=== PATIENT | male | born 1965 | race Caucasian/White ===

== ENCOUNTER → 2017-03-16 | Outpatient (CLI) | payer MEDICARE, MEDICAID ==
[~2017-03-16] MED LIST: AMLO-512 PO; ASPI-1213 PO; DULO60CA44 PO; FOLI1 PO; LISI-662 PO; PALI234D IM; PROP20 PO; SIMV-260 PO; THIA100 PO
== END | disposition home or self-care (01) ==
LOC: RADPV 15:09
PROVIDERS: ATTEND Internal Medicine Geriatric Medicine
DX: M25.511 Pain in right shoulder (principal)

== ENCOUNTER 2018-05-02 13:18 | Inpatient (IN) | payer MEDICARE, MEDICAID ==
[~2018-05-02] VITALS: Ht 162.6 cm; Wt 70.8 kg
[~2018-05-02 13:18] MED LIST changes: -PROP20 PO; +PROP20TA96 PO; -THIA100 PO; +THIA100T67 PO
[2018-05-02] MEDS ORDERED: BENZ0.5T44 PO (13:31)
[2018-05-02] MEDS ORDERED: ALBU8HFA IH (13:31)
[2018-05-02] MEDS ORDERED: GEMF600T5 PO (13:31)
[2018-05-02] MEDS ORDERED: FAMO20 PO (13:31)
[2018-05-02] MEDS ORDERED: ACETAMINOPHEN 500 MG TABLET PO ONE (13:45)
[2018-05-02 13:53] LABS: BASOPHILS % (AUTO) 0.3 % (0.0-2.0); EOSINOPHILS % (AUTO) 2.1 % (1.0-6.0); HEMATOCRIT 37.7 % (41-53); LYMPHOCYTES # (AUTO) 1.9 K/uL (1.0-4.8); LYMPHOCYTES % (AUTO) 22.3 % (22.0-44.0); MEAN CORPUSCULAR HEMOGLOBIN 32.7 pg (26.0-34.0); MEAN CORPUSCULAR HGB CONC 34.4 G/dL (31.0-37.0); MEAN CORPUSCULAR VOLUME 95 fL (80-100); MONOCYTES # (AUTO) 0.7 K/uL (0.1-1.0); MONOCYTES % (AUTO) 7.5 % (2.0-9.0); NEUTROPHILS # (AUTO) 5.9 K/uL (1.8-7.7); NEUTROPHILS % (AUTO) 67.8 % (40.0-70.0); PLATELET COUNT (AUTO) 378 K/uL (150-450); RED BLOOD CELL COUNT(AUTO) 3.97 MIL/uL (4.50-5.90); RED CELL DISTRIBUTION WIDTH 13.9 % (11.5-14.5)
[2018-05-02 14:06] LABS: ANION GAP 9 mmol/L (8-16); CALCIUM, TOTAL 9.5 mg/dL (8.8-10.5); CARBON DIOXIDE 27 mmol/L (22-29); CHLORIDE 103 mmol/L (98-107); CREATININE 1.04 mg/dL (0.60-1.30); GLOMERULAR FILTR. RATE CALC > 60 mL/min (>60); GLUCOSE,RANDOM 125 mg/dL (70-110); POTASSIUM 3.8 mmol/L (3.5-5.1); SODIUM SERUM 139 mmol/L (136-145); UREA NITROGEN, BLOOD 15 mg/dL (7-18)
[2018-05-02 14:12] LABS: ALANINE AMINOTRANSFERASE 46 U/L (12-78); ALKALINE PHOSPHATASE 85 U/L (46-116); ASPARTATE AMINOTRANSFERASE 28 U/L (15-37); BILIRUBIN,TOTAL 0.3 mg/dL (0.1-1.0); TOTAL PROTEIN, SERUM 7.2 g/dL (6.4-8.2)
[2018-05-02] MEDS ORDERED: HALOPERIDOL 5 MG TABLET PO PRN (15:15)
[2018-05-02] MEDS ORDERED: LORazepam 2 MG TABLET PO PRN (15:15)
[2018-05-02] MEDS ORDERED: ACETAMINOPHEN 325 MG TABLET PO PRN (15:30)
[2018-05-02 17:33] LABS: AMPHET/METH SCREEN,URINE NEGATIVE (NEGATIVE); BARBITURATE SCREEN, URINE NEGATIVE (NEGATIVE); BENZODIAZEPINES SCREEN,URINE NEGATIVE (NEGATIVE); CANNABINOID SCREEN,URINE POSITIVE (NEGATIVE); COCAINE SCREEN,URINE NEGATIVE (NEGATIVE); METHADONE SCREEN, URINE NEGATIVE (NEGATIVE); OPIATE SCREEN,URINE NEGATIVE (NEGATIVE); PHENCYCLIDINE SCREEN,URINE NEGATIVE (NEGATIVE)
[2018-05-02] MEDS ORDERED: CloNIDine HCL 0.1 MG TABLET PO PRN (19:15)
[2018-05-02] MEDS ORDERED: ALBUTEROL SULFATE HFA 90 MCG/PUFF 8 GM INHALER IH PRN (19:15)
[2018-05-02 20:03] VITALS: BP 121/87
[2018-05-03] MEDS: GEMFIBROZIL 600 MG TABLET PO SCH ×2 (06:30→16:32)
[2018-05-03 08:00] VITALS: BP 138/92
[2018-05-03 08:11] LABS: BASOPHILS % (AUTO) 0.4 % (0.0-2.0); EOSINOPHILS % (AUTO) 2.8 % (1.0-6.0); HEMATOCRIT 37.2 % (41-53); HEMOGLOBIN 12.9 g/dL (13.5-17.5); LYMPHOCYTES # (AUTO) 1.7 K/uL (1.0-4.8); LYMPHOCYTES % (AUTO) 25.6 % (22.0-44.0); MEAN CORPUSCULAR HEMOGLOBIN 32.5 pg (26.0-34.0); MEAN CORPUSCULAR HGB CONC 34.8 G/dL (31.0-37.0); MEAN CORPUSCULAR VOLUME 93 fL (80-100); MONOCYTES # (AUTO) 0.5 K/uL (0.1-1.0); MONOCYTES % (AUTO) 7.6 % (2.0-9.0); NEUTROPHILS # (AUTO) 4.3 K/uL (1.8-7.7); NEUTROPHILS % (AUTO) 63.6 % (40.0-70.0); PLATELET COUNT (AUTO) 370 K/uL (150-450); RED BLOOD CELL COUNT(AUTO) 3.98 MIL/uL (4.50-5.90); RED CELL DISTRIBUTION WIDTH 14.1 % (11.5-14.5)
[2018-05-03 08:42] LABS: HEMOGLOBIN A1C 5.9 % (4.5-6.2)
[2018-05-03 08:49] LABS: ALANINE AMINOTRANSFERASE 55 U/L (12-78); ALBUMIN 3.8 g/dL (3.4-5.0); ALKALINE PHOSPHATASE 78 U/L (46-116); ANION GAP 9 mmol/L (8-16); ASPARTATE AMINOTRANSFERASE 40 U/L (15-37); BILIRUBIN,TOTAL 0.4 mg/dL (0.1-1.0); CALCIUM, TOTAL 9.4 mg/dL (8.8-10.5); CARBON DIOXIDE 29 mmol/L (22-29); CHLORIDE 104 mmol/L (98-107); CHOL/HDL RATIO 5.8 (4.2-7.3); CHOLESTEROL 174 mg/dL (131-200); CREATININE 0.97 mg/dL (0.60-1.30); GLOMERULAR FILTR. RATE CALC > 60 mL/min (>60); GLUCOSE,RANDOM 101 mg/dL (70-110); HDL CHOLESTEROL 30 mg/dL (40-60); LDL CHOL (CALC.) 112 mg/dL (0-130); POTASSIUM 3.5 mmol/L (3.5-5.1); SODIUM SERUM 142 mmol/L (136-145); TRIGLYCERIDES 159 mg/dL (15-150); UREA NITROGEN, BLOOD 16 mg/dL (7-18)
[2018-05-03] MEDS: AmLODIPine BESYLATE 10 MG TABLET PO SCH (08:52)
[2018-05-03] MEDS: SIMVASTATIN 20 MG TABLET PO SCH (08:52)
[2018-05-03] MEDS: THIAMINE HCL 100 MG TABLET PO SCH ×2 (08:52→16:33)
[2018-05-03] MEDS: FOLIC ACID 1 MG TABLET PO SCH (08:52)
[2018-05-03] MEDS: FAMOTIDINE 20 MG TABLET PO SCH ×2 (08:52→16:32)
[2018-05-03] MEDS: LISINOPRIL 20 MG TABLET PO SCH ×2 (08:52→16:32)
[2018-05-03] MEDS: ASPIRIN 325 MG TABLET PO SCH (08:52)
[2018-05-03 11:12] LABS: THYROID STIMULATING HORMONE 0.94 uIU/mL (0.36-3.74)
[2018-05-03 16:16] VITALS: BP 121/84
[2018-05-03] MEDS: DULoxetine HCL 60 MG CAPSULE PO SCH (16:33)
[2018-05-03 20:54] VITALS: BP 132/81
[2018-05-03] MEDS: IBUPROFEN 400 MG TABLET PO PRN (20:57)
[2018-05-03] MEDS: ZOLPIDEM TARTRATE 10 MG TABLET PO PRN (20:57)
[2018-05-03] MEDS ORDERED: ARIP10TA8 PO (21:05)
[2018-05-04 00:03] VITALS: BP 133/75
[2018-05-04] MEDS: GEMFIBROZIL 600 MG TABLET PO SCH ×2 (06:43→16:34)
[2018-05-04 08:08] VITALS: BP 141/92
[2018-05-04] MEDS: ARIPiprazole 10 MG TABLET PO SCH (08:08)
[2018-05-04] MEDS: FOLIC ACID 1 MG TABLET PO SCH (08:08)
[2018-05-04] MEDS: DULoxetine HCL 60 MG CAPSULE PO SCH ×2 (08:08→16:34)
[2018-05-04] MEDS: SIMVASTATIN 20 MG TABLET PO SCH (08:08)
[2018-05-04] MEDS: LISINOPRIL 20 MG TABLET PO SCH ×2 (08:08→16:34)
[2018-05-04] MEDS: FAMOTIDINE 20 MG TABLET PO SCH ×2 (08:08→16:34)
[2018-05-04] MEDS: AmLODIPine BESYLATE 10 MG TABLET PO SCH (08:08)
[2018-05-04] MEDS: ASPIRIN 325 MG TABLET PO SCH (08:08)
[2018-05-04] MEDS: THIAMINE HCL 100 MG TABLET PO SCH ×2 (08:08→16:34)
[2018-05-04 16:14] VITALS: BP 123/93
[2018-05-04 20:44] VITALS: BP 118/78
[2018-05-04] MEDS: ZOLPIDEM TARTRATE 10 MG TABLET PO PRN (20:44)
[2018-05-05 05:32] VITALS: BP_SYST 117; BP_SYST 123; BP_DIAS 86; BP_DIAS 93
[2018-05-05] MEDS: GEMFIBROZIL 600 MG TABLET PO SCH ×2 (06:32→16:24)
[2018-05-05] MEDS: ARIPiprazole 10 MG TABLET PO SCH (08:12)
[2018-05-05] MEDS: LISINOPRIL 20 MG TABLET PO SCH ×2 (08:12→16:24)
[2018-05-05] MEDS: FOLIC ACID 1 MG TABLET PO SCH (08:12)
[2018-05-05] MEDS: DULoxetine HCL 60 MG CAPSULE PO SCH ×2 (08:12→16:24)
[2018-05-05] MEDS: SIMVASTATIN 20 MG TABLET PO SCH (08:12)
[2018-05-05] MEDS: ASPIRIN 325 MG TABLET PO SCH (08:12)
[2018-05-05] MEDS: THIAMINE HCL 100 MG TABLET PO SCH ×2 (08:12→16:24)
[2018-05-05] MEDS: FAMOTIDINE 20 MG TABLET PO SCH ×2 (08:12→16:24)
[2018-05-05] MEDS: AmLODIPine BESYLATE 10 MG TABLET PO SCH (08:12)
[2018-05-05 08:19] VITALS: BP 117/82
[2018-05-05 16:18] VITALS: BP 105/85
[2018-05-05 16:31] VITALS: BP 122/79
[2018-05-05] MEDS: ZOLPIDEM TARTRATE 10 MG TABLET PO PRN (20:30)
[2018-05-06 06:12] VITALS: BP 118/74
[2018-05-06] MEDS: GEMFIBROZIL 600 MG TABLET PO SCH ×2 (06:39→16:55)
[2018-05-06 08:09] VITALS: BP 123/88
[2018-05-06] MEDS: THIAMINE HCL 100 MG TABLET PO SCH ×2 (08:13→16:56)
[2018-05-06] MEDS: FOLIC ACID 1 MG TABLET PO SCH (08:13)
[2018-05-06] MEDS: AmLODIPine BESYLATE 10 MG TABLET PO SCH (08:13)
[2018-05-06] MEDS: SIMVASTATIN 20 MG TABLET PO SCH (08:13)
[2018-05-06] MEDS: LISINOPRIL 20 MG TABLET PO SCH ×2 (08:13→16:56)
[2018-05-06] MEDS: DULoxetine HCL 60 MG CAPSULE PO SCH ×2 (08:13→16:56)
[2018-05-06] MEDS: ARIPiprazole 10 MG TABLET PO SCH (08:13)
[2018-05-06] MEDS: FAMOTIDINE 20 MG TABLET PO SCH ×2 (08:14→16:56)
[2018-05-06] MEDS: ASPIRIN 325 MG TABLET PO SCH (08:18)
[2018-05-06 16:29] VITALS: BP 123/77
[2018-05-06] MEDS: IBUPROFEN 400 MG TABLET PO PRN (16:48)
[2018-05-06] MEDS: ZOLPIDEM TARTRATE 10 MG TABLET PO PRN (20:48)
[2018-05-07 03:28] VITALS: BP 119/65
[2018-05-07] MEDS: GEMFIBROZIL 600 MG TABLET PO SCH ×2 (06:34→16:33)
[2018-05-07 08:10] VITALS: BP 130/90
[2018-05-07] MEDS: DULoxetine HCL 60 MG CAPSULE PO SCH ×2 (08:20→16:33)
[2018-05-07] MEDS: THIAMINE HCL 100 MG TABLET PO SCH ×2 (08:20→16:33)
[2018-05-07] MEDS: AmLODIPine BESYLATE 10 MG TABLET PO SCH (08:20)
[2018-05-07] MEDS: ASPIRIN 325 MG TABLET PO SCH (08:20)
[2018-05-07] MEDS: SIMVASTATIN 20 MG TABLET PO SCH (08:20)
[2018-05-07] MEDS: FOLIC ACID 1 MG TABLET PO SCH (08:20)
[2018-05-07] MEDS: ARIPiprazole 10 MG TABLET PO SCH (08:20)
[2018-05-07] MEDS: FAMOTIDINE 20 MG TABLET PO SCH ×2 (08:20→16:33)
[2018-05-07] MEDS: LISINOPRIL 20 MG TABLET PO SCH ×2 (08:20→16:33)
[2018-05-07 16:06] VITALS: BP 112/84
[2018-05-07] MEDS ORDERED: TraZODone HCL 100 MG TABLET PO SCH (21:00)
[2018-05-08 01:01] VITALS: BP 103/71
[2018-05-08] MEDS: GEMFIBROZIL 600 MG TABLET PO SCH (06:29)
[2018-05-08] MEDS: LISINOPRIL 20 MG TABLET PO SCH (08:20)
[2018-05-08] MEDS: FOLIC ACID 1 MG TABLET PO SCH (08:20)
[2018-05-08] MEDS: ASPIRIN 325 MG TABLET PO SCH (08:20)
[2018-05-08] MEDS: FAMOTIDINE 20 MG TABLET PO SCH (08:20)
[2018-05-08] MEDS: AmLODIPine BESYLATE 10 MG TABLET PO SCH (08:20)
[2018-05-08] MEDS: THIAMINE HCL 100 MG TABLET PO SCH (08:20)
[2018-05-08] MEDS: DULoxetine HCL 60 MG CAPSULE PO SCH (08:20)
[2018-05-08] MEDS: SIMVASTATIN 20 MG TABLET PO SCH (08:20)
[2018-05-08] MEDS ORDERED: DULO60CA44 PO (08:49)
[2018-05-08] MEDS ORDERED: TRAZ-220 PO (08:51)
[2018-05-08] MEDS ORDERED: ARIPiprazole 15 MG TABLET PO SCH (09:00)
== END 2018-05-08 12:15 | disposition home or self-care (01) | DRG 885 ==
LOC: EMS 13:19 → B2X 16:52
PROVIDERS: ADMIT Psychiatry & Neurology Psychiatry; ATTEND Psychiatry & Neurology Psychiatry
DX: F25.0 Schizoaffective disorder, bipolar type (principal); R45.851 Suicidal ideations; F15.20 Other stimulant dependence, uncomplicated; D64.9 Anemia, unspecified; E78.00 Pure hypercholesterolemia, unspecified; E78.5 Hyperlipidemia, unspecified; F10.10 Alcohol abuse, uncomplicated; F12.90 Cannabis use, unspecified, uncomplicated; F41.9 Anxiety disorder, unspecified; R73.9 Hyperglycemia, unspecified; I10 Essential (primary) hypertension; I25.10 Atherosclerotic heart disease of native coronary artery without angina pectoris; J44.9 Chronic obstructive pulmonary disease, unspecified; K21.9 Gastro-esophageal reflux disease without esophagitis; Z80.0 Family history of malignant neoplasm of digestive organs; Z79.82 Long term (current) use of aspirin; Z95.5 Presence of coronary angioplasty implant and graft; Z91.5 Personal history of self-harm; Z79.899 Other long term (current) drug therapy
CPT/HCPCS: 80074; 83036; 84443; G0480

== ENCOUNTER → 2018-06-12 | Outpatient (CLI) | payer MEDICARE, MEDICAID ==
[~2018-06-12] MED LIST changes: +ALBU8HFA IH; +ARIP10TA8 PO; +FAMO20 PO; -FOLI1 PO; +GEMF600T5 PO; -PALI234D IM; -PROP20TA96 PO; -THIA100T67 PO; +TRAZ-220 PO
== END | disposition home or self-care (01) ==
LOC: RADPV 08:27
PROVIDERS: ATTEND Internal Medicine Cardiovascular Disease
DX: I25.10 Atherosclerotic heart disease of native coronary artery without angina pectoris (principal); I50.1 Left ventricular failure, unspecified
CPT/HCPCS: 93306

== ENCOUNTER 2018-12-13 05:51 | Inpatient (IN) | payer BC, MEDICAID, MEDICARE ==
[~2018-12-13] VITALS: Ht 162.6 cm; Wt 71.7 kg
[~2018-12-13 05:51] MED LIST changes: -AMLO-512 PO; +AMLO10TA7 PO; -ASPI-1213 PO; +ASPI-1484 PO
[2018-12-13 09:36] VITALS: BP 125/78
[2018-12-13] MEDS ORDERED: LISI-661 PO (09:41)
[2018-12-13] MEDS ORDERED: AMLO5TAB9 PO (09:41)
[2018-12-13] MEDS ORDERED: LORazepam 2 MG TABLET PO PRN (10:15)
[2018-12-13] MEDS ORDERED: HALOPERIDOL 5 MG TABLET PO PRN (10:15)
[2018-12-13] MEDS ORDERED: ZOLPIDEM TARTRATE 10 MG TABLET PO PRN (10:15)
[2018-12-13 12:15] VITALS: BP 122/86
[2018-12-13] MEDS: AmLODIPine BESYLATE 5 MG TABLET PO SCH (12:17)
[2018-12-13] MEDS: LISINOPRIL 10 MG TABLET PO SCH (12:17)
[2018-12-13] MEDS: ASPIRIN 325 MG TABLET PO SCH (12:17)
[2018-12-13 16:13] VITALS: BP 133/83
[2018-12-13] MEDS: FAMOTIDINE 20 MG TABLET PO SCH (16:54)
[2018-12-13] MEDS: DULoxetine HCL 60 MG CAPSULE PO SCH (16:54)
[2018-12-13] MEDS: TraZODone HCL 100 MG TABLET PO SCH (20:49)
[2018-12-14 06:17] VITALS: BP 136/85
[2018-12-14 06:56] LABS: BASOPHILS % (AUTO) 0.6 % (0.0-2.0); EOSINOPHILS % (AUTO) 3.5 % (1.0-6.0); HEMATOCRIT 39.3 % (41-53); HEMOGLOBIN 13.2 g/dL (13.5-17.5); LYMPHOCYTES % (AUTO) 24.6 % (22.0-44.0); MEAN CORPUSCULAR HEMOGLOBIN 32.9 pg (26.0-34.0); MEAN CORPUSCULAR HGB CONC 33.5 G/dL (31.0-37.0); MEAN CORPUSCULAR VOLUME 98 fL (80-100); MONOCYTES # (AUTO) 0.6 K/uL (0.1-1.0); NEUTROPHILS # (AUTO) 5.2 K/uL (1.8-7.7); NEUTROPHILS % (AUTO) 64.3 % (40.0-70.0); PLATELET COUNT (AUTO) 340 K/uL (150-450); RED BLOOD CELL COUNT(AUTO) 4.01 MIL/uL (4.50-5.90); RED CELL DISTRIBUTION WIDTH 14.1 % (11.5-14.5)
[2018-12-14 07:26] LABS: ALANINE AMINOTRANSFERASE 30 U/L (12-78); ALBUMIN 4.3 g/dL (3.4-5.0); ALKALINE PHOSPHATASE 77 U/L (46-116); ANION GAP 10 mmol/L (8-16); ASPARTATE AMINOTRANSFERASE 15 U/L (15-37); BILIRUBIN,TOTAL 0.4 mg/dL (0.1-1.0); CALCIUM, TOTAL 9.8 mg/dL (8.8-10.5); CARBON DIOXIDE 27 mmol/L (22-29); CHLORIDE 106 mmol/L (98-107); CHOL/HDL RATIO 4.4 (4.2-7.3); CHOLESTEROL 136 mg/dL (131-200); CREATININE 1.16 mg/dL (0.60-1.30); GLOMERULAR FILTR. RATE CALC > 60 mL/min (>60); GLUCOSE,RANDOM 98 mg/dL (70-110); HDL CHOLESTEROL 31 mg/dL (40-60); LDL CHOL (CALC.) 84 mg/dL (0-130); POTASSIUM 4.3 mmol/L (3.5-5.1); SODIUM SERUM 143 mmol/L (136-145); THYROID STIMULATING HORMONE 0.57 uIU/mL (0.36-3.74); TOTAL PROTEIN, SERUM 6.5 g/dL (6.4-8.2); TRIGLYCERIDES 105 mg/dL (15-150); UREA NITROGEN, BLOOD 14 mg/dL (7-18)
[2018-12-14 07:38] LABS: HEMOGLOBIN A1C 5.6 % (4.5-6.2)
[2018-12-14 08:07] VITALS: BP 133/87
[2018-12-14] MEDS: ARIPiprazole 15 MG TABLET PO SCH (08:32)
[2018-12-14] MEDS: ASPIRIN 325 MG TABLET PO SCH (08:32)
[2018-12-14] MEDS: LISINOPRIL 10 MG TABLET PO SCH (08:32)
[2018-12-14] MEDS: AmLODIPine BESYLATE 5 MG TABLET PO SCH (08:32)
[2018-12-14] MEDS: DULoxetine HCL 60 MG CAPSULE PO SCH ×2 (08:33→16:19)
[2018-12-14] MEDS: FAMOTIDINE 20 MG TABLET PO SCH ×2 (08:33→16:19)
[2018-12-14 16:08] VITALS: BP 133/82
[2018-12-14] MEDS: TraZODone HCL 100 MG TABLET PO SCH (20:03)
[2018-12-15 07:15] VITALS: BP 126/80
[2018-12-15 08:40] VITALS: BP 139/72
[2018-12-15] MEDS: FAMOTIDINE 20 MG TABLET PO SCH ×2 (09:25→16:06)
[2018-12-15] MEDS: DULoxetine HCL 60 MG CAPSULE PO SCH ×2 (09:25→16:06)
[2018-12-15] MEDS: LISINOPRIL 10 MG TABLET PO SCH (09:25)
[2018-12-15] MEDS: ASPIRIN 325 MG TABLET PO SCH (09:25)
[2018-12-15] MEDS: AmLODIPine BESYLATE 5 MG TABLET PO SCH (09:25)
[2018-12-15] MEDS: ARIPiprazole 15 MG TABLET PO SCH (09:25)
[2018-12-15 19:04] VITALS: BP 138/90
[2018-12-15] MEDS: TraZODone HCL 100 MG TABLET PO SCH (20:06)
[2018-12-16 05:39] VITALS: BP 136/87
[2018-12-16] MEDS ORDERED: IBUPROFEN 600 MG TABLET PO PRN (08:30)
[2018-12-16] MEDS ORDERED: MAGNESIUM HYDROXIDE SUSPENSION 30 ML UDCUP PO PRN (08:30)
[2018-12-16] MEDS ORDERED: PETROLATUM,WHITE 28 GM JELLY TP PRN (08:30)
[2018-12-16] MEDS ORDERED: MAG HYDROX/AL HYDROX/SIMETH ES 30 ML SUSPENSION UDCUP PO PRN (08:30)
[2018-12-16] MEDS ORDERED: ONDANSETRON HCL 4 MG TABLET PO PRN (08:30)
[2018-12-16] MEDS ORDERED: CloNIDine HCL 0.1 MG TABLET PO PRN (08:30)
[2018-12-16] MEDS ORDERED: ACETAMINOPHEN 325 MG TABLET PO PRN (08:30)
[2018-12-16] MEDS ORDERED: LOPERAMIDE HCL 2 MG CAPSULE PO PRN (08:30)
[2018-12-16] MEDS ORDERED: ALBUTEROL SULFATE HFA 90 MCG/PUFF 8 GM INHALER IH PRN (08:30)
[2018-12-16] MEDS ORDERED: BENZOCAINE/MENTHOL LOZENGE MM PRN (08:30)
[2018-12-16] MEDS ORDERED: BACITRACIN 28.4 GM OINTMENT TP PRN (08:30)
[2018-12-16 08:46] VITALS: BP 143/97
[2018-12-16] MEDS: AmLODIPine BESYLATE 5 MG TABLET PO SCH (09:05)
[2018-12-16] MEDS: LISINOPRIL 10 MG TABLET PO SCH (09:05)
[2018-12-16] MEDS: ARIPiprazole 15 MG TABLET PO SCH (09:06)
[2018-12-16] MEDS: ASPIRIN 325 MG TABLET PO SCH (09:06)
[2018-12-16] MEDS: DULoxetine HCL 60 MG CAPSULE PO SCH ×2 (09:06→16:31)
[2018-12-16] MEDS: DOCUSATE SODIUM 100 MG CAPSULE PO SCH (09:06)
[2018-12-16] MEDS: FAMOTIDINE 20 MG TABLET PO SCH ×2 (09:14→16:31)
[2018-12-16] MEDS: OMEPRAZOLE 20 MG CAPSULE PO SCH (09:24)
[2018-12-16 16:24] VITALS: BP 135/92
[2018-12-16] MEDS: TraZODone HCL 100 MG TABLET PO SCH (20:30)
[2018-12-17 04:08] VITALS: BP 124/70
[2018-12-17 08:05] VITALS: BP 134/94
[2018-12-17] MEDS: OMEPRAZOLE 20 MG CAPSULE PO SCH (08:28)
[2018-12-17] MEDS: DOCUSATE SODIUM 100 MG CAPSULE PO SCH (08:28)
[2018-12-17] MEDS: ARIPiprazole 15 MG TABLET PO SCH (08:28)
[2018-12-17] MEDS: AmLODIPine BESYLATE 5 MG TABLET PO SCH (08:28)
[2018-12-17] MEDS: ASPIRIN 325 MG TABLET PO SCH (08:28)
[2018-12-17] MEDS: LISINOPRIL 10 MG TABLET PO SCH (08:28)
[2018-12-17] MEDS: DULoxetine HCL 60 MG CAPSULE PO SCH (08:28)
[2018-12-17] MEDS: FAMOTIDINE 20 MG TABLET PO SCH (08:28)
[2018-12-17] MEDS ORDERED: DULO60CA44 PO (11:10)
== END 2018-12-17 13:56 | disposition home or self-care (01) | DRG 885 ==
LOC: B2X 10:21 → EDSTATUS 10:48
PROVIDERS: ADMIT Psychiatry & Neurology Psychiatry; ATTEND Psychiatry & Neurology Psychiatry
DX: F20.9 Schizophrenia, unspecified (principal); E78.5 Hyperlipidemia, unspecified; F41.9 Anxiety disorder, unspecified; G47.00 Insomnia, unspecified; I10 Essential (primary) hypertension; F12.10 Cannabis abuse, uncomplicated; J44.9 Chronic obstructive pulmonary disease, unspecified; K21.9 Gastro-esophageal reflux disease without esophagitis; Z72.0 Tobacco use; Z71.6 Tobacco abuse counseling
CPT/HCPCS: 83036; 84439; 84443

== ENCOUNTER 2023-01-16 12:58 | Inpatient (IN) | payer MEDICARE, MEDICAID ==
[~2023-01-16] VITALS: Ht 165.1 cm; Wt 73.9 kg
[~2023-01-16 12:58] MED LIST changes: -ALBU8HFA IH; +AMLO-257 PO; -AMLO10TA7 PO; +ARIP10TA38 PO; -ARIP10TA8 PO; -ASPI-1484 PO; +DULO-113 PO; -DULO60CA44 PO; -FAMO20 PO; -GEMF600T5 PO; -LISI-662 PO; +LISI-893 PO; -SIMV-260 PO; -TRAZ-220 PO; +TRAZ-257 PO
[2023-01-16] MEDS ORDERED: NITROGLYCERIN 0.4 MG SUBLINGUAL TABLET #25 SL ONE ×2 (13:26→13:30)
[2023-01-16] MEDS ORDERED: ASPIRIN 81 MG CHEWABLE TABLET PO ONE (13:30)
[2023-01-16 13:56] LABS: BASOPHILS % (AUTO) 0.7 % (0.0-2.0); EOSINOPHILS % (AUTO) 0.3 % (1.0-6.0); HEMATOCRIT 39.9 % (41-53); HEMOGLOBIN 13.9 g/dL (13.5-17.5); LYMPHOCYTES # (AUTO) 0.8 K/uL (1.0-4.8); LYMPHOCYTES % (AUTO) 9.5 % (22.0-44.0); MEAN CORPUSCULAR HEMOGLOBIN 32.6 pg (26.0-34.0); MEAN CORPUSCULAR HGB CONC 34.9 G/dL (31.0-37.0); MEAN CORPUSCULAR VOLUME 93 fL (80-100); MONOCYTES # (AUTO) 0.5 K/uL (0.1-1.0); MONOCYTES % (AUTO) 6.2 % (2.0-9.0); NEUTROPHILS # (AUTO) 7.2 K/uL (1.8-7.7); NEUTROPHILS % (AUTO) 83.3 % (40.0-70.0); PLATELET COUNT (AUTO) 308 K/uL (150-450); RED BLOOD CELL COUNT(AUTO) 4.27 MIL/uL (4.50-5.90); RED CELL DISTRIBUTION WIDTH 13.9 % (11.5-14.5); WHITE BLOOD COUNT (AUTO) 8.6 K/uL (4.5-11.0)
[2023-01-16 14:11] LABS: ANION GAP 8 mmol/L (8-16); CALCIUM, TOTAL 8.8 mg/dL (8.8-10.5); CARBON DIOXIDE 27 mmol/L (22-29); CHLORIDE 103 mmol/L (98-107); CREATININE 1.04 mg/dL (0.60-1.30); GLOMERULAR FILTR. RATE CALC > 60 mL/min (>60); GLUCOSE,RANDOM 142 mg/dL (70-110); SODIUM SERUM 138 mmol/L (136-145); UREA NITROGEN, BLOOD 8 mg/dL (7-18)
[2023-01-16 14:15] LABS: B-TYPE NATRIURETIC PEPTIDE 6 pg/mL (0-100)
[2023-01-16 14:22] LABS: TROPONIN I-HIGH SENSITIVITY 7 ng/L (<76)
[2023-01-16 14:34] LABS: ALANINE AMINOTRANSFERASE 47 U/L (12-78); ALKALINE PHOSPHATASE 73 U/L (46-116); ASPARTATE AMINOTRANSFERASE 22 U/L (15-37); BILIRUBIN,TOTAL 0.4 mg/dL (0.1-1.0); CREATINE KINASE, TOTAL ONLY 135 U/L (39-308); TOTAL PROTEIN, SERUM 6.7 g/dL (6.4-8.2)
[2023-01-16 14:48] LABS: LIPASE 624 U/L (16-77)
[2023-01-16 15:24] LABS: APPEARANCE,URINE CLEAR (CLEAR); BILIRUBIN,URINE NEGATIVE (NEGATIVE); COLOR,URINE YELLOW (YELLOW); GLUCOSE, URINE (UA) >=1000 mg/dL (NEGATIVE); KETONES,URINE NEGATIVE (NEGATIVE); LEUKOCYTE ESTERASE ,URINE NEGATIVE (NEGATIVE); NITRATE,URINE NEGATIVE (NEGATIVE); OCCULT BLOOD,URINE NEGATIVE (NEGATIVE); PROTEIN,URINE NEGATIVE (NEGATIVE); SPECIFIC GRAVITIY, URINE 1.006 (1.003-1.030); UROBILINOGEN,URINE <=1.0 mg/dL (<=1.0)
[2023-01-16 15:27] LABS: AMPHET/METH SCREEN,URINE NEGATIVE (NEGATIVE); BARBITURATE SCREEN, URINE NEGATIVE (NEGATIVE); BENZODIAZEPINES SCREEN,URINE NEGATIVE (NEGATIVE); CANNABINOID SCREEN,URINE POSITIVE (NEGATIVE); COCAINE SCREEN,URINE NEGATIVE (NEGATIVE); METHADONE SCREEN, URINE NEGATIVE (NEGATIVE); OPIATE SCREEN,URINE NEGATIVE (NEGATIVE); PHENCYCLIDINE SCREEN,URINE NEGATIVE (NEGATIVE)
[2023-01-16 15:39] LABS: ALCOHOL, URINE DRUG SCREEN NEGATIVE (NEGATIVE)
[2023-01-16 15:55] LABS: COVID AG,FIA SOURCE NASAL SWAB
[2023-01-16 15:55] LABS: BACTERIA,URINE None Seen /HPF (None Seen); RBC,URINE None Seen /HPF (0-2); SQUAMOUS EPITHELIAL CELL,UR None Seen /LPF (None Seen); WBC,URINE None Seen /HPF (0-5)
[2023-01-16 16:22] LABS: SARS-COV2 (COVID) ANTIGEN,FIA Negative (Negative)
[2023-01-16] MEDS ORDERED: POTASSIUM CHL 10 MEQ/WATER 50 ML IV PRN (16:30)
[2023-01-16] MEDS ORDERED: SODIUM CHLORIDE 0.9% 1,000 ML IV ONE (16:30)
[2023-01-16] MEDS ORDERED: ZOLPIDEM TARTRATE 5 MG TABLET PO PRN (16:30)
[2023-01-16] MEDS ORDERED: ONDANSETRON HCL 4 MG/2 ML VIAL IVP PRN (16:30)
[2023-01-16] MEDS ORDERED: MAGNESIUM HYDROXIDE SUSPENSION 30 ML UDCUP PO PRN (16:30)
[2023-01-16] MEDS ORDERED: ACETAMINOPHEN 325 MG TABLET PO PRN (16:30)
[2023-01-16] MEDS: POTASSIUM CHLORIDE 20 MEQ ER TABLET PO PRN (17:48)
[2023-01-16 19:19] LABS: TROPONIN I-HIGH SENSITIVITY 12 ng/L (<76)
[2023-01-16 21:19] VITALS: BP 150/92; PULSE 61; RESP 19; TEMP 98.1
[2023-01-16] MEDS: DOCUSATE SODIUM 100 MG CAPSULE PO SCH (23:19)
[2023-01-16] MEDS: CARVEDILOL 6.25 MG TABLET PO SCH (23:19)
[2023-01-16 23:24] VITALS: BP 136/81; PULSE 57; RESP 18; TEMP 98
[2023-01-17] MEDS: POTASSIUM CHLORIDE 20 MEQ ER TABLET PO PRN (00:24)
[2023-01-17] MEDS: HEPARIN SODIUM,PORCINE 5,000 UNITS/ML VIAL SQ SCH ×3 (00:24→16:00)
[2023-01-17] MEDS: TraZODone HCL 150 MG TABLET PO PRN (00:24)
[2023-01-17 03:33] VITALS: BP 161/93; PULSE 51; RESP 18; TEMP 97.7
[2023-01-17 07:30] LABS: LIPASE 243 U/L (16-77); POTASSIUM 3.8 mmol/L (3.5-5.1)
[2023-01-17 07:53] VITALS: BP 150/92; PULSE 58; RESP 20; TEMP 98
[2023-01-17 09:13] LABS: BASOPHILS % (AUTO) 0.6 % (0.0-2.0); EOSINOPHILS % (AUTO) 3.3 % (1.0-6.0); HEMATOCRIT 41.7 % (41-53); HEMOGLOBIN 14.3 g/dL (13.5-17.5); LYMPHOCYTES # (AUTO) 1.7 K/uL (1.0-4.8); LYMPHOCYTES % (AUTO) 20.4 % (22.0-44.0); MEAN CORPUSCULAR HEMOGLOBIN 32.8 pg (26.0-34.0); MEAN CORPUSCULAR HGB CONC 34.2 G/dL (31.0-37.0); MEAN CORPUSCULAR VOLUME 96 fL (80-100); MONOCYTES # (AUTO) 0.6 K/uL (0.1-1.0); MONOCYTES % (AUTO) 6.9 % (2.0-9.0); NEUTROPHILS # (AUTO) 5.7 K/uL (1.8-7.7); NEUTROPHILS % (AUTO) 68.8 % (40.0-70.0); PLATELET COUNT (AUTO) 316 K/uL (150-450); RED BLOOD CELL COUNT(AUTO) 4.35 MIL/uL (4.50-5.90); RED CELL DISTRIBUTION WIDTH 14.3 % (11.5-14.5); WHITE BLOOD COUNT (AUTO) 8.3 K/uL (4.5-11.0)
[2023-01-17 09:33] LABS: ANION GAP 11 mmol/L (8-16); CARBON DIOXIDE 22 mmol/L (22-29); CHLORIDE 106 mmol/L (98-107); GLUCOSE,RANDOM 121 mg/dL (70-110); SODIUM SERUM 139 mmol/L (136-145); UREA NITROGEN, BLOOD 9 mg/dL (7-18)
[2023-01-17 09:34] LABS: ALANINE AMINOTRANSFERASE 44 U/L (12-78); ALBUMIN 3.6 g/dL (3.4-5.0); ALKALINE PHOSPHATASE 70 U/L (46-116); ASPARTATE AMINOTRANSFERASE 23 U/L (15-37); BILIRUBIN,TOTAL 0.7 mg/dL (0.1-1.0); CALCIUM, TOTAL 8.9 mg/dL (8.8-10.5); CREATININE 1.07 mg/dL (0.60-1.30); GLOMERULAR FILTR. RATE CALC > 60 mL/min (>60); TOTAL PROTEIN, SERUM 6.3 g/dL (6.4-8.2)
[2023-01-17] MEDS: ASPIRIN 81 MG CHEWABLE TABLET PO SCH (09:46)
[2023-01-17] MEDS: FAMOTIDINE 20 MG TABLET PO SCH (09:47)
[2023-01-17] MEDS: ATORVASTATIN CALCIUM 20 MG TABLET PO SCH (09:47)
[2023-01-17] MEDS: CARVEDILOL 6.25 MG TABLET PO SCH ×2 (09:47→20:17)
[2023-01-17] MEDS: DOCUSATE SODIUM 100 MG CAPSULE PO SCH ×2 (09:47→20:17)
[2023-01-17] MEDS ORDERED: SESTAMIBI TC99M/UD ISOTOPE 1 EA INJ INJ ONE (10:10)
[2023-01-17 11:00] VITALS: BP 147/87; PULSE 60; RESP 18; TEMP 98
[2023-01-17 15:00] VITALS: BP 142/80; PULSE 53; RESP 20; TEMP 98.7
[2023-01-17 20:11] VITALS: BP 146/82; PULSE 62; RESP 20; TEMP 98.4
[2023-01-17 23:43] VITALS: BP 145/73; PULSE 59; RESP 19; TEMP 98.2
[2023-01-18] MEDS: TraZODone HCL 150 MG TABLET PO PRN (01:00)
[2023-01-18 04:18] VITALS: BP 148/77; PULSE 58; RESP 18; TEMP 98.1
[2023-01-18 07:55] VITALS: BP 133/87; PULSE 58; RESP 18; TEMP 98.2
[2023-01-18] MEDS: CARVEDILOL 6.25 MG TABLET PO SCH (09:00)
[2023-01-18] MEDS ORDERED: REGADENOSON 0.4 MG/5 ML PF SYRINGE IVP ONE (09:00)
[2023-01-18] MEDS ORDERED: AMINOPHYLLINE 25 MG/ML 10 ML VIAL IVP ONE (09:15)
[2023-01-18 10:28] VITALS: BP 138/83; PULSE 54; O2SAT 99
[2023-01-18 10:37] VITALS: BP 137/90; PULSE 60
[2023-01-18] MEDS: DOCUSATE SODIUM 100 MG CAPSULE PO SCH (10:38)
[2023-01-18] MEDS: HEPARIN SODIUM,PORCINE 5,000 UNITS/ML VIAL SQ SCH ×3 (10:38→16:00)
[2023-01-18] MEDS: ASPIRIN 81 MG CHEWABLE TABLET PO SCH (10:39)
[2023-01-18] MEDS: ATORVASTATIN CALCIUM 20 MG TABLET PO SCH (10:39)
[2023-01-18] MEDS: FAMOTIDINE 20 MG TABLET PO SCH (10:39)
[2023-01-18] MEDS ORDERED: SESTAMIBI TC99M/UD ISOTOPE 1 EA INJ INJ ONE (11:45)
[2023-01-18 11:46] VITALS: BP 131/67; PULSE 53; RESP 18; TEMP 98.3
[2023-01-18] MEDS ORDERED: CARV6 PO (12:03)
[2023-01-18] MEDS ORDERED: ASPI81 PO (12:03)
[2023-01-18] MEDS ORDERED: ATOR20TA65 PO (12:03)
[2023-01-18 15:56] VITALS: BP 129/84; PULSE 57; RESP 18; TEMP 98.3
== END 2023-01-18 14:39 | disposition home or self-care (01) | DRG 439 ==
LOC: EMS 14:04 → 5S 17:23
PROVIDERS: ADMIT Internal Medicine; ATTEND Internal Medicine
DX: K85.90 Acute pancreatitis without necrosis or infection, unspecified (principal); I25.110 Atherosclerotic heart disease of native coronary artery with unstable angina pectoris; F25.9 Schizoaffective disorder, unspecified; E66.9 Obesity, unspecified; Z20.822 Contact with and (suspected) exposure to COVID-19; E87.6 Hypokalemia; F32.A Depression, unspecified; I10 Essential (primary) hypertension; E78.00 Pure hypercholesterolemia, unspecified; F12.90 Cannabis use, unspecified, uncomplicated; E05.90 Thyrotoxicosis, unspecified without thyrotoxic crisis or storm; Z79.899 Other long term (current) drug therapy; Z95.5 Presence of coronary angioplasty implant and graft; Z68.27 Body mass index [BMI] 27.0-27.9, adult; Z91.51 Personal history of suicidal behavior
CPT/HCPCS: 71045; 78452; 80053; 80307; 81001; 82550; 83690; 83880; 84132; 84443; 84484; 85025; 93005; 93306; 99291; A9500; G0378; G0480; J1644; 36415-L1; 36415-TC